=== PATIENT | male | born 1985 | race Caucasian/White ===

== ENCOUNTER 2024-12-06 16:00 | Inpatient (IN) | payer OTHER ==
[2024-12-06] MEDS ORDERED: ACETAMINOPHEN INJECTION 100 ML ONE (17:56)
[2024-12-06 18:28] LABS: ABSOLUTE IMMATURE GRANULOCYTES 0.02 x10^3/uL (0.0-0.031); BASOPHILS # 0.07 x10^3/uL (0.01-0.08); EOSINOPHIL % 0.5 % (0.8-7.0); EOSINOPHILS # 0.05 x10^3/uL (0.04-0.54); MCHC 33.2 g/dl (32.3-36.5); MEAN CELL VOLUME 89.3 fl (79.0-92.2); MEAN PLT VOLUME 9.7 fl (9.4-12.4); MONOCYTE # 1.26 x10^3/uL (0.30-0.82); MONOCYTE % 13.2 % (5.3-12.2); RDW 11.9 % (12.1-15.9)
[2024-12-06] MEDS: ACETAMINOPHEN 1000 MG/100 ML BAG IVPB ONE (18:29)
[2024-12-06] MEDS: LACTATED RINGERS SOLUTION 1000 ML INFUS.BAG IV ONE (18:29)
[2024-12-06 18:31] LABS: URINE APPEARANCE CLEAR; URINE BILIRUBIN NEGATIVE (NEGATIVE); URINE COLOR YELLOW; URINE GLUCOSE (UA) NEGATIVE (NEGATIVE); URINE KETONE 1+ (NEGATIVE); URINE LEUK ESTERASE NEGATIVE (NEGATIVE); URINE NITRITE NEGATIVE (NEGATIVE); URINE PROTEIN NEGATIVE (NEGATIVE); URINE UROBILINOGEN 0.2 mg/dL (0.2-1.0)
[2024-12-06 18:46] LABS: INR 1.28 (0.83-1.09); PROTHROMBIN TIME (PATIENT) 14.1 SEC (9.7-13.0)
[2024-12-06 18:49] LABS: ACTIVATED PTT 32.6 SECONDS (25.2-36.5)
[2024-12-06 18:54] LABS: GLUCOSE,RANDOM 92.0 mg/dL (74-106); TOT PROT 6.9 g/dl (6.4-8.2)
[2024-12-06 18:55] LABS: CO2 26.0 mmol/L (21-32)
[2024-12-06 18:57] LABS: ALK PHOS 57.0 U/L (40-150)
[2024-12-06 19:00] LABS: CREATININE 0.97 mg/dL (0.55-1.3); SGOT/AST 23.0 U/L (5-34); SGPT/ALT 28.0 U/L (0-55)
[2024-12-06] MEDS ORDERED: CEFTRIAXONE 1,000 MG in DEXTROSE 5%-WATER - 50 ML IVPB ONE (21:24)
[2024-12-06 21:49] LABS: HCV DIAGNOSTIC IN-HOUSE W/RFLX NON-REACTIVE (NONREACTIVE); HIV INTERPRETATION NEGATIVE (NEGATIVE)
[2024-12-06] MEDS ORDERED: ONDANSETRON 4 MG/2 ML VIAL IVPUSH PRN (21:53)
[2024-12-06] MEDS: CEFOXITIN SODIUM 2 GM in DEXTROSE 5%-WATER - 100 ML IVPB ONE (22:39)
[2024-12-06] MEDS: SODIUM CHLORIDE 1,000 ML IV SCH (22:40)
[2024-12-07] MEDS: ACETAMINOPHEN 1000 MG/100 ML BAG IVPB PRN (00:09)
[2024-12-07 00:56] VITALS: BMI 24.9
[2024-12-07] MEDS ORDERED: CEFOXITIN SODIUM 2 GM in DEXTROSE 5%-WATER - 100 ML IVPB SCH (02:00)
[2024-12-07] MEDS: CEFOXITIN SODIUM 2 GM in DEXTROSE 5%-WATER - 100 ML IVPB SCH ×2 (06:56→21:05)
[2024-12-07 09:12] LABS: MCHC 32.7 g/dl (32.3-36.5); MEAN CELL VOLUME 90.3 fl (79.0-92.2); MEAN PLT VOLUME 10.2 fl (9.4-12.4); RDW 11.8 % (12.1-15.9)
[2024-12-07 09:29] LABS: GLUCOSE,RANDOM 89.0 mg/dL (74-106); TOT PROT 6.2 g/dl (6.4-8.2)
[2024-12-07 09:32] LABS: ALK PHOS 54.0 U/L (40-150)
[2024-12-07 09:35] LABS: CO2 26.0 mmol/L (21-32); SGOT/AST 23.0 U/L (5-34); SGPT/ALT 26.0 U/L (0-55)
[2024-12-07 09:36] LABS: CREATININE 0.86 mg/dL (0.55-1.3)
[2024-12-07] MEDS ORDERED: HEPARIN NA (PORCINE) 5,000 UNITS/ML 1ML VIAL ONE (14:34)
[2024-12-07] MEDS ORDERED: BUPIVACAINE HCL/PF 0.25% (2.5MG/ML) 10 ML VIAL ONE (14:34)
[2024-12-07] MEDS ORDERED: cefOXitin SODIUM 2 GM VIAL (RESTRICTED TO ID) IVPB ONE (14:34)
[2024-12-07] MEDS ORDERED: ACETAMINOPHEN INJECTION 100 ML ONE (15:57)
[2024-12-07] MEDS ORDERED: ROCURONIUM BROMIDE 50 MG/5 ML SYRINGE ONE ×2 (15:57→18:02)
[2024-12-07] MEDS ORDERED: SUCCINYLCHOLINE CHLORIDE 200 MG/10 ML SYRINGE ONE (15:58)
[2024-12-07] MEDS ORDERED: SEVOFLURANE 250 ML BTL ONE (15:59)
[2024-12-07] MEDS ORDERED: PROPOFOL 20 ML ONE ×2 (16:15→18:24)
[2024-12-07] MEDS ORDERED: LIDOCAINE HCL/PF 2% SDV 5ML VIAL ONE (16:15)
[2024-12-07] MEDS ORDERED: MIDAZOLAM HCL 2 MG/2 ML SINGLE DOSE VIAL ONE (16:16)
[2024-12-07] MEDS ORDERED: DEXAMETHASONE SOD PHOSPHATE 4 MG/1 ML VIAL ONE (16:44)
[2024-12-07] MEDS ORDERED: METOCLOPRAMIDE HCL INJECTION 10 MG/2 ML VIAL ONE (16:44)
[2024-12-07] MEDS ORDERED: ONDANSETRON 4 MG/2 ML VIAL ONE (16:44)
[2024-12-07] MEDS ORDERED: GLYCOPYRROLATE 0.2 MG/1 ML VIAL ONE (16:44)
[2024-12-07] MEDS: cefOXitin SODIUM 2 GM VIAL (RESTRICTED TO ID) IVPB ONE ×2 (16:52)
[2024-12-07] MEDS: HEPARIN NA (PORCINE) 5,000 UNITS/ML 1ML VIAL SQ ONE ×2 (17:05)
[2024-12-07] MEDS: BUPIVACAINE HCL/PF 0.25% (2.5MG/ML) 10 ML VIAL IJ ONE ×2 (17:20)
[2024-12-07] MEDS ORDERED: SUGAMMADEX SODIUM 200 MG/2 ML VIAL ONE (17:48)
[2024-12-07] MEDS ORDERED: KETOROLAC TROMETHAMINE 30 MG/1 ML VIAL ONE (18:00)
[2024-12-07] MEDS ORDERED: ONDANSETRON 4 MG/2 ML VIAL IVPUSH PRN (19:11)
[2024-12-07] MEDS: LACTATED RINGERS SOLUTION 1,000 ML IV SCH ×2 (20:39→21:06)
[2024-12-07] MEDS: KETOROLAC TROMETHAMINE 15 MG/ML VIAL IVPUSH PRN (21:14)
[2024-12-08] MEDS: ACETAMINOPHEN 1000 MG/100 ML BAG IVPB SCH (00:51)
[2024-12-08 01:25] VITALS: RESP 18
[2024-12-08] MEDS: CEFOXITIN SODIUM 2 GM in DEXTROSE 5%-WATER 100 ML IVPB SCH (02:24)
[2024-12-08 08:02] LABS: MCHC 32.7 g/dl (32.3-36.5); MEAN CELL VOLUME 88.6 fl (79.0-92.2); MEAN PLT VOLUME 10.4 fl (9.4-12.4); RDW 11.9 % (12.1-15.9)
[2024-12-08 08:35] LABS: GLUCOSE,RANDOM 128.0 mg/dL (74-106)
[2024-12-08 08:36] LABS: TOT PROT 5.7 g/dl (6.4-8.2)
[2024-12-08 08:37] LABS: CO2 25.0 mmol/L (21-32)
[2024-12-08 08:38] LABS: ALK PHOS 55.0 U/L (40-150)
[2024-12-08 08:41] LABS: CREATININE 0.83 mg/dL (0.55-1.3); SGOT/AST 23.0 U/L (5-34); SGPT/ALT 21.0 U/L (0-55)
[2024-12-08] MEDS ORDERED: ACETAMINOPHEN 500 MG TABLET (FP) PO PRN (10:14)
[2024-12-08] MEDS: ENOXAPARIN NA (PORCINE) 40 MG/0.4 ML DISP.SYRIN SQ SCH (10:21)
[2024-12-08 15:27] VITALS: BP 114/70; PULSE 77; TEMP 98.2
== END 2024-12-08 16:25 | disposition home or self-care (01) | DRG 225 ==
LOC: JER 16:00 → JERBED 21:23 → OBSVTOIN 21:49 → J7W 23:45 → J8W 12-07 20:55
PROVIDERS: ADMIT Internal Medicine; ATTEND Nurse Practitioner Acute Care
PROC: 0WQF4ZZ Repair Abdominal Wall, Percutaneous Endoscopic Approach (ICD-10-PCS; 2024-12-07)
PROC: 0DTU4ZZ Resection of Omentum, Percutaneous Endoscopic Approach (ICD-10-PCS; 2024-12-07)
PROC: 0DTJ4ZZ Resection of Appendix, Percutaneous Endoscopic Approach (ICD-10-PCS; principal; 2024-12-07 13:00)
DX: K35.80 Unspecified acute appendicitis (principal); K56.2 Volvulus; K45.8 Other specified abdominal hernia without obstruction or gangrene
CPT/HCPCS: 36415; 74177-TC; 80053; 81003; 82248; 83605; 83735; 84100; 85025; 85027; 85610; 85730; 86803; 86850; 86900; 86901; 87086; 87389; 88304-TC; 88305-TC; 94760; 99285-25; G0378; Q9967